=== PATIENT | male | born 1965 | race Caucasian/White ===

== ENCOUNTER 2017-01-17 14:51 | Emergency (ER) | payer MEDICAID ==
[~2017-01-17] VITALS: Wt 60.0 kg
[~2017-01-17 14:51] MED LIST: ACET500C5 PO; GLIP-95 PO; HYDR-3011 PO; MTF1000T PO
[2017-01-17] MEDS ORDERED: CEPH-443 PO (16:02)
[2017-01-17] MEDS ORDERED: SULF1TAB31 PO (16:02)
--- NOTE | 2017-01-17 20:02 | ERD ---
ER Documentation Chief Complaint Date/Time DATE: 01/17/17 TIME: 19:54 Chief Complaint RIGHT KNEE SWELLING/PAIN HPI This is a 51-year-old male presenting to the emergency department with right leg abscess. Patient states he noticed redness and swelling distal to the right knee for the past 3 days. Patient has a bandage covering the lesion with small amount of bloody discharge. No purulent discharge. No fevers or chills. No knee swelling or limited range of motion. Patient ambulating normally. ROS All systems reviewed and are negative except as per history of present illness. Medications Home Meds Active Scripts Cephalexin* (Keflex*) 500 Mg Capsule, 500 MG PO QID for 5 Days, CAP Prov:IAN HOFFMAN NP 01/17/17 Sulfamethoxazole/Trimethoprim* (Bactrim Ds* Tablet) 1 Each Tablet, 1 TAB PO BID , #14 TAB Prov:IAN HOFFMAN NP 01/17/17 Hydroxyzine Hcl* (Hydroxyzine Hcl*) 25 Mg Tablet, 25 MG PO Q8H Y for ITCHING, # 30 TAB Prov:CRISTIANA PARRA NP 11/02/15 Acetaminophen* (Tylophen*) 500 Mg Capsule, 1 CAP PO Q6H Y for PAIN AND OR ELEVATED TEMP, #20 CAP Prov:CRISTIANA PARRA CHEMICAL MIXER 11/02/15 Reported Medications Glipizide* (Glipizide*) 10 Mg Tablet, 10 MG PO BID, TAB 04/05/14 Metformin* (Glucophage*) 1,000 Mg Tablet, 1000 MG PO BID, TAB 04/05/14 Allergies Allergies: Coded Allergies: aspirin (Verified Allergy, Unknown, 04/05/14) PMhx/Soc History of Surgery: Yes (cholecystectomy) Hx Miscellaneous Medical Probl: Yes (DM) Hx Alcohol Use: Yes (SOCIALLY ) Hx Substance Use: No Hx Tobacco Use: No Smoking Status: Never smoker Physical Exam Vitals Vital Signs Date Time Temp Pulse Resp B/P Pulse Ox O2 Delivery O2 Flow Rate FiO2 01/17/17 14:59 8.0 99 17 167/101 99 Physical Exam Const: No acute distress, alert Head: Atraumatic Eyes: Normal Conjunctiva ENT: Normal External Ears, Nose and Mouth. Neck: Full range of motion..~ No meningismus. Resp: Clear to auscultation bilaterally Cardio: Regular rate and rhythm, no murmurs Abd: Soft, non tender, non distended. Normal bowel sounds Skin: small 1cm x 1cm erythematous swelling to the anterior distal right knee. No fluctuance. No induration. No active bleeding or drainage. Back: No midline or flank tenderness Ext: No cyanosis, or edema. Full mobility to bilateral knees. No limited range of motion. Ambulates normally. Neur: Awake and alert Psych: Normal Mood and Affect Procedures/MDM MDM: This is a 51-year-old male presenting to emergency department with right leg lesion with swelling and pain x 3 days. Patient noticed a small amount of bloody drainage prior to coming to the ER. No active drainage or bleeding. Patient has a small lesion with surrounding erythema and swelling distal to the right knee anteriorly. No fevers or chills. Patient remains neurovascularly intact. Denies numbness or tingling. No loss of sensation. Full mobility to right knee. Denies knee pain. Pain is localized to a small lesion with surrounding erythema and swelling. Patient diagnosis is cellulitis versus abscess. There is no fluctuance on physical exam and therefore an incision and drainage would not be successful. Patient is appropriate for outpatient management and instructed to apply warm compresses for 20 minutes a day 2-3 times a day. Patient will also be given prescription for Bactrim and Keflex. Instructed patient return in 2 days for wound check. Return to ED for any high fever, chest pain, difficulty breathing , shortness breath, wheezing, vomiting, diarrhea, abdominal pain or any new or worsening symptoms. Patient verbalizes understanding. All questions answered at discharge. Serbian translation use during this encounter. Disclaimer: Inadvertent spelling and grammatical errors are likely due to EHR/ dictation software use and do not reflect on the overall quality of patient care. Also, please note that the electronic time recorded on this note does not necessarily reflect the actual time of the patient encounter. Departure Diagnosis: Primary Impression: Abscess Condition: Stable Patient Instructions: Abscess, Antiobiotic Treatment Only Ref[facility] Usted se haile hecho un examen mdico de control que le indica que no est en dell condicin que requiera tratamiento urgente en el Departamento de Emergencia. Un estudio ms profundo y el tratamiento de melendrez condicin pueden esperar sin ningn riesgo hasta que usted sea atendida/o en el consultorio de melendrez mdico o dell cl elvie. Es responsabilidad suya arreglar dell rafiq para el seguimiento del tyson. MANEJO DE CONDICIONES NO URGENTES EN EL FUTURO 1) Si usted tiene un mdico de atencin primaria: Usted debera llamar a melendrez mdico de atencin primaria antes de venir al departamento de emergencia. Despus de las horas de consultorio, melendrez doctor o melendrez asociado/a est disponible por telfono. El mdico o enfermero de mar en el servicio telefnico puede asesorarle por sarah medio para atender el problema, o tyson contrario se puede programar dell rafiq. 2) Si usted no tiene un mdico de atencin primaria: Llame al mdico o clnica de referencia que aparece abajo marissa las horas de consultorio para hacer dell rafiq para que le vean. CLINICAS: [facility] [phone] [facility] [phone] [facility]. [facility] [phone] [facility]. [facility] [phone] [facility]. [place] [phone] [facility]. [phone] [address] [facility]. [facility] () Usted se haile hecho un examen mdico de control que le indica que no est en dell condicin que requiera tratamiento urgente en el Departamento de Emergencia. Un estudio ms profundo y el tratamiento de melendrez condicin pueden esperar sin ningn riesgo hasta que usted sea atendida/o en el consultorio de melendrez mdico o dell cl elvie. Es responsabilidad suya arreglar dell rafiq para el seguimiento del tyson. MANEJO DE CONDICIONES NO URGENTES EN EL FUTURO 1) Si usted tiene un mdico de atencin primaria: Usted debera llamar a melendrez mdico de atencin primaria antes de venir al departamento de emergencia. Despus de las horas de consultorio, melendrez doctor o melendrez asociado/a est disponible por telfono. El mdico o enfermero de mar en el servicio telefnico puede asesorarle por sarah medio para atender el problema, o tyson contrario se puede programar dell rafiq. 2) Si usted no tiene un mdico de atencin primaria: Llame al mdico o condado institucions de referencia que aparece abajo marissa las horas de consultorio para hacer dell rafiq para que le vean. SI USTED NO PUEDE PAGAR PARA PRASHANT UN MEDICO puede ir a: [facility] [id number] [place] [address] [facility] [address] [place] [address] [facility] [address] [place] [address] [facility] [address] [place], [place] [id number] Additional Instructions: WOUND CHECK:CONSULTE A MELENDREZ MDICO EN 2 howe para prashant MELENDREZ HERIDA. Regresar a ED por fiebre destiney, dolor en el pecho, dificultad para respirar, respiracin entrecortada, sibilancias, vmitos, diarrea, dolor abdominal o cualquier sntoma nuevo o que empeora. IAN HOFFMAN NP Jan 17, 2017 20:01
== END 2017-01-17 16:23 | disposition home or self-care (01) ==
LOC: FTE 14:51
DX: L02.415 Cutaneous abscess of right lower limb (principal); E11.9 Type 2 diabetes mellitus without complications; Z79.84 Long term (current) use of oral hypoglycemic drugs
CPT/HCPCS: 99284

== ENCOUNTER 2017-03-02 00:56 | Emergency (ER) | payer MEDICAID ==
[~2017-03-02] VITALS: Ht 167.6 cm; Wt 59.5 kg
[~2017-03-02 00:56] MED LIST changes: +CEPH-443 PO; +SULF1TAB31 PO
[2017-03-02 00:59] VITALS: Ht 167.6 cm; Wt 59.5 kg
--- NOTE | 2017-03-02 01:39 | ERD ---
ER Documentation Chief Complaint Chief Complaint Vomiting and diarrhea HPI The patient is a 51-year-old male, presenting to the ER because of vomiting and diarrhea that began yesterday. His son is having the same symptoms, he denies fever, chills, neck pain, chest pain, complains of epigastric abdominal pain with diarrhea, denied dysuria, hematochezia, hematemesis. He does not smoke, drinks socially, denies illicit drug Past medical history: Diabetes mellitus Past surgical history cholecystectomy ROS All systems reviewed and are negative except as per history of present illness. Medications Home Meds Active Scripts Ondansetron (Ondansetron Odt) 4 Mg Tab.rapdis, 4 MG PO Q6H Y for NAUSEA AND/OR VOMITING, #10 TAB Prov:RADHAMES ONEAL MD 03/02/17 Loperamide Hcl* (Imodium*) 2 Mg Capsule, 2 MG PO .WITH EACH DIARRHEA Y for DIARRHEA, #20 CAP MAX 16 mg/day Prov:RADHAMES ONEAL MD 03/02/17 Acetaminophen* (Tylophen*) 500 Mg Capsule, 1 CAP PO Q6H Y for PAIN AND OR ELEVATED TEMP, #20 CAP Prov:CRISTIANA PARRA NP 11/02/15 Reported Medications Calcium Citrate* (Citracal*) 950 Mg Tab, 950 MG PO DAILY, TAB 03/02/17 Multivitamins* (Theragran*) 1 Tab Tab, 1 TAB PO DAILY, TAB 03/02/17 Glipizide* (Glipizide*) 10 Mg Tablet, 10 MG PO BID, TAB 04/05/14 Metformin* (Glucophage*) 1,000 Mg Tablet, 1000 MG PO BID, TAB 04/05/14 Discontinued Scripts Cephalexin* (Keflex*) 500 Mg Capsule, 500 MG PO QID for 5 Days, CAP Prov:IAN HOFFMAN NP 01/17/17 Sulfamethoxazole/Trimethoprim* (Bactrim Ds* Tablet) 1 Each Tablet, 1 TAB PO BID , #14 TAB Prov:IAN HOFFMAN NP 01/17/17 Hydroxyzine Hcl* (Hydroxyzine Hcl*) 25 Mg Tablet, 25 MG PO Q8H Y for ITCHING, # 30 TAB Prov:CRISTIANA PARRA NP 11/02/15 Allergies Allergies: Coded Allergies: aspirin (Verified Allergy, Unknown, 04/05/14) PMhx/Soc History of Surgery: Yes (cholecystectomy) Hx Miscellaneous Medical Probl: Yes (DM) Hx Alcohol Use: Yes (SOCIALLY ) Hx Substance Use: No Hx Tobacco Use: No Physical Exam Vitals Vital Signs Date Time Temp Pulse Resp B/P Pulse Ox O2 Delivery O2 Flow Rate FiO2 03/02/17 00:59 98.3 88 20 142/96 98 Physical Exam Const: No acute distress. Head: Atraumatic. Eyes: Normal Conjunctiva. ENT: Normal External Ears, Nose and Mouth. Neck: Full range of motion. No meningismus. Resp: Clear to auscultation bilaterally. Cardio: Regular rate and rhythm. Abd: Soft, non distended, normal bowel sounds, non tender. Skin: No petechiae or rashes. Back: No midline or flank tenderness. Ext: No cyanosis, or edema. Neur: Awake and alert. No focal deficit Psych: Normal Mood and Affect. Result Diagram: 03/02/1722603/02/17226 Results 24 hrs Laboratory Tests Test 03/02/17 02:20 03/02/17 02:27 Bedside Glucose 318mg/dL White Blood Count 11.410^3/ul Red Blood Count 4.4910^6/ul Hemoglobin 14.8g/dl Hematocrit 41.1% Mean Corpuscular Volume 91.5fl Mean Corpuscular Hemoglobin 33.0pg Mean Corpuscular Hemoglobin Concent 36.0g/dl Red Cell Distribution Width 11.7% Platelet Count 03479^3/UL Mean Platelet Volume 11.7fl Neutrophils % 90.2% Lymphocytes % 4.9% Monocytes % 3.4% Eosinophils % 0.8% Basophils % 0.3% Nucleated Red Blood Cells % 0.0/100WBC Neutrophils # 10.310^3/ul Lymphocytes # 0.610^3/ul Monocytes # 0.410^3/ul Eosinophils # 0.110^3/ul Basophils # 0.010^3/ul Nucleated Red Blood Cells # 0.010^3/ul Sodium Level 140mmol/L Potassium Level 3.0mmol/L Chloride Level 97mmol/L Carbon Dioxide Level 30mmol/L Anion Gap 16 Blood Urea Nitrogen 16mg/dl Creatinine 0.79mg/dl Glucose Level 338mg/dl Calcium Level 8.9mg/dl Total Bilirubin 1.7mg/dl Direct Bilirubin 0.00mg/dl Indirect Bilirubin 1.7mg/dl Aspartate Amino Transf (AST/SGOT) 25IU/L Alanine Aminotransferase (ALT/SGPT) 44IU/L Alkaline Phosphatase 134IU/L Total Protein 7.5g/dl Albumin 4.6g/dl Globulin 2.90g/dl Albumin/Globulin Ratio 1.58 Lipase 45U/L Current Medications Medications (Trade) Dose Ordered Sig/La Route PRN Reason Start Time Stop Time Status Last Admin Dose Admin Loperamide HCl (Imodium Cap) 4 mg ONCE ONCE PO 03/02/17 02:00 03/02/17 02:01 DC 03/02/17 02:29 Ondansetron HCl 4 mg 4 mg ONCE STAT IV 03/02/17 01:56 03/02/17 01:58 DC 03/02/17 02:29 Sodium Chloride (NS) 1,000 ml @ 1,000 mls/hr Q1H ONCE IV 03/02/17 02:00 03/02/17 02:59 DC 03/02/17 02:29 Potassium Chloride (Klor-Con 20) 40 meq ONCE STAT PO 03/02/17 03:42 03/02/17 03:43 DC Procedures/MDM MEDICAL MAKING DECISION: The patient is a 51-year-old male, presenting to the ER because of vomiting and diarrhea, he was treated with Imodium 4 mg p.o. for diarrhea and Zofran ODT for nausea and potassium chloride 60 mcg p.o. for acute hypokalemia with good response. He does not have any abdominal pain, elevated total bilirubin is most likely due to vomiting. I do not suspect choledocholithiasis, cholangitis. The differential diagnoses considered include but are not limited to cholelithiasis, cholecystitis, cystitis, pancreatitis, hepatitis, gastritis, peptic ulcer disease, gastric ulcer, appendicitis, diverticulitis, cholangitis, choledocholithiasis, partial small bowel obstruction. Departure Diagnosis: Primary Impression: Vomiting and diarrhea Additional Impression: Hypokalemia Condition: Good Comments He was discharged with Imodium and Zofran ODT The patient's blood pressure was elevated (>120/80) but appears stable without evidence of hypertension emergency or urgency. The patient was counseled about the risks of hypertension and urged to pursue outpatient monitoring and therapy within a week with their primary care physician. I discussed the findings with the patient. I advised the patient to follow-up with the primary physician in about 1-2 days, sooner if needed and return if any concern. Disclaimer: Inadvertent spelling and grammatical errors are likely due to EHR/ dictation software use and do not reflect on the overall quality of patient care. Also, please note that the electronic time recorded on this note does not necessarily reflect the actual time of the patient encounter. RADHAMES ONEAL MD Mar 02, 2017 01:39
[2017-03-02] MEDS ORDERED: ONDANSETRON 4 MG INJ IV STA (01:56)
[2017-03-02] MEDS ORDERED: LOPERAMIDE 2 MG CAP PO ONE (02:00)
[2017-03-02] MEDS ORDERED: SOD CHLORIDE 0.9% 1,000 ML IV ONE (02:00)
[2017-03-02 02:41] LABS: ABNORMAL IP MESSAGE 1; BASOPHILS % 0.3 % (0.0-2.0); EOSINOPHILS # 0.1 10^3/ul (0.0-0.5); EOSINOPHILS % 0.8 % (0.0-7.0); HEMATOCRIT 41.1 % (42.0-52.0); HEMOGLOBIN 14.8 g/dl (14.0-18.0); LYMPHOCYTES # 0.6 10^3/ul (0.8-2.9); LYMPHOCYTES % 4.9 % (15.0-51.0); MEAN CORPUSCULAR VOLUME 91.5 fl (82.0-101.0); MEAN PLATELET VOLUME 11.7 fl (7.4-10.4); MONOCYTE # 0.4 10^3/ul (0.3-0.9); MONOCYTES % 3.4 % (0.0-11.0); NEUTROPHIL # 10.3 10^3/ul (1.6-7.5); NEUTROPHILS % 90.2 % (39.0-77.0); PLATELET COUNT 207 10^3/UL (140-415); POSITIVE DIFF @See below; RED BLOOD COUNT 4.49 10^6/ul (4.70-6.10); RED CELL DISTRIBUTION WIDTH 11.7 % (11.5-14.5); WHITE BLOOD COUNT 11.4 10^3/ul (4.8-10.8)
[2017-03-02 03:11] LABS: ALBUMIN 4.6 g/dl (3.3-4.9); ALBUMIN/GLOBULIN RATIO 1.58; BILIRUBIN,INDIRECT 1.7 mg/dl (0-1.1); BILIRUBIN,TOTAL 1.7 mg/dl (0.2-1.3); CALCIUM 8.9 mg/dl (8.4-10.2); CREATININE 0.79 mg/dl (0.61-1.24); TOTAL PROTEIN 7.5 g/dl (6.1-8.1)
[2017-03-02] MEDS ORDERED: MULTI PO (03:17)
[2017-03-02] MEDS ORDERED: CITRACAL PO (03:17)
[2017-03-02] MEDS ORDERED: POTASSIUM CHLORIDE (SR) 20 MEQ TAB PO STA (03:42)
[2017-03-02] MEDS ORDERED: LOPE2CAP PO (03:48)
[2017-03-02] MEDS ORDERED: ONDA4TAB14 PO (03:48)
[2017-03-02 04:06] VITALS: BP 122/89; PULSE 68; RESP 20; TEMP 98.3
[2017-03-02] MEDS ORDERED: POTASSIUM CHLORIDE (SR) 20 MEQ TAB PO ONE (04:09)
== END 2017-03-02 04:13 | disposition home or self-care (01) ==
LOC: E/R 00:56
DX: E87.6 Hypokalemia (principal); E11.9 Type 2 diabetes mellitus without complications; Z79.84 Long term (current) use of oral hypoglycemic drugs
CPT/HCPCS: 36415; 80053; 82962; 83690; 85025; 96374; J2405; J7030; Z7502; Z7610

== ENCOUNTER 2019-01-09 17:34 | Inpatient (IN) | payer MEDICAID ==
[~2019-01-09] VITALS: Ht 160 cm; Wt 59.0 kg
[~2019-01-09 17:34] MED LIST changes: +ATOR10TA65 PO; -CEPH-443 PO; +CITRACAL PO; +GABA100C14 PO; -GLIP-95 PO; +GLIP10TA14 PO; -HYDR-3011 PO; +INSU100I33 SC; +LISI-313 PO; +LOPE2CAP PO; +METF100010 PO; +MULTI PO; +NATE60TA PO; +NPH,100V SC; +OMEG100024 PO; +ONDA4TAB14 PO; +PANT40TA4 PO; +PRED20TA PO; -SULF1TAB31 PO; +THIA100T56 PO; +VALA500T PO
[2019-01-09] MEDS ORDERED: SOD CHLORIDE 0.9% 1,000 ML IV STA (17:49)
[2019-01-09] MEDS ORDERED: IOHEXOL 100 ML ONE (17:55)
[2019-01-09] MEDS ORDERED: SOD CHLORIDE 0.9% 100 ML ONE (17:55)
[2019-01-09] MEDS ORDERED: INSULIN LISPRO 100 UNIT/ML VIAL SC ONE (19:00)
[2019-01-09] MEDS ORDERED: ACCU-CHEK XX ONE (19:00)
[2019-01-09] MEDS ORDERED: ONDANSETRON 4 MG INJ IV PRN ×2 (19:30)
[2019-01-09] MEDS ORDERED: NACL 0.9% 3 ML SYG IV SCH (19:30)
[2019-01-09] MEDS: SOD CHLORIDE 0.9% 1,000 ML IV SCH (19:30)
[2019-01-09] MEDS ORDERED: DOCUSATE SODIUM 100 MG CAP PO PRN (19:30)
[2019-01-09] MEDS ORDERED: ACETAMINOPHEN 325 MG TAB PO PRN (19:30)
[2019-01-09] MEDS ORDERED: MAGNESIUM HYDROXIDE 30ML CUP PO PRN (19:30)
[2019-01-09] MEDS ORDERED: GLUCOSE GEL 15 GRAM TUBE BUCCAL PRN (20:00)
[2019-01-09] MEDS ORDERED: GLUCOSE GEL 15 GRAM TUBE PO PRN ×2 (20:00)
[2019-01-09] MEDS ORDERED: GLUCAGON 1 MG INJ IM PRN (20:00)
[2019-01-09] MEDS ORDERED: LORAZEPAM 1 MG TAB PO ONE (20:00)
[2019-01-09] MEDS ORDERED: LABETALOL HCL 20MG INJ IV PRN (20:00)
[2019-01-09] MEDS ORDERED: DEXTROSE 50% 50 ML SYRINGE IV PRN ×2 (20:00)
[2019-01-09] MEDS: hydrALAzine 20 MG INJ IV PRN (20:17)
[2019-01-09 21:00] VITALS: BP 162/84; PULSE 96; RESP 16
[2019-01-09] MEDS: INSULIN ASPART [NOVOLOG] 3 ML PEN SC SCH (21:00)
[2019-01-09] MEDS ORDERED: ATORVASTATIN 80 MG TAB PO SCH (21:00)
[2019-01-09 21:25] VITALS: Ht 160 cm; Wt 59.0 kg
[2019-01-09] MEDS: INSULIN GLARGINE [LANTus] (100 UNITS/ML) SYG SC SCH (21:51)
[2019-01-09] MEDS: ACETAMINOPHEN 325 MG TAB PO PRN (21:59)
[2019-01-09] MEDS ORDERED: LORAZEPAM 0.5 MG TAB PO PRN (22:30)
[2019-01-10] VITALS (9 sets, daily range): BP systolic 140–230; BP diastolic 84–103; PULSE 70–91; RESP 16–20
[2019-01-10] MEDS: ACETAMINOPHEN 325 MG TAB PO PRN ×3 (00:22→17:21)
[2019-01-10] MEDS: hydrALAzine 20 MG INJ IV PRN (00:29)
[2019-01-10] MEDS: INSULIN ASPART [NOVOLOG] 3 ML PEN SC SCH ×4 (01:04→18:00)
[2019-01-10] MEDS: MULTIVITAMINS 10 ML, THIAMINE 100 MG, FOLIC ACID 1 MG in SOD CHLORIDE 0.9% 1,000 ML IVPB SCH ×3 (01:29→11:04)
[2019-01-10] MEDS: SOD CHLORIDE 0.9% 1,000 ML IV SCH ×3 (05:30→19:15)
[2019-01-10] MEDS ORDERED: PANTOPRAZOLE (EC) 40 MG TAB PO SCH (06:00)
[2019-01-10] MEDS: CLOPIDOGREL 75 MG TAB PO SCH ×2 (08:24→11:04)
[2019-01-10] MEDS ORDERED: POTASSIUM CHLORIDE (SR) 20 MEQ TAB PO STA (10:32)
[2019-01-10] MEDS ORDERED: INSULIN ASPART [NOVOLOG] 3 ML PEN SC SCH (11:20)
[2019-01-10] MEDS: Insulin NOVOLOG SS MODERATE Algorithm (SS with meals and bedtime) SC SCH ×3 (11:25→21:00)
[2019-01-10] MEDS: LISINOPRIL 5 MG TAB PO SCH (14:28)
[2019-01-10] MEDS: predniSONE 20 MG TAB PO SCH (14:28)
[2019-01-10] MEDS: valACYclovir 500 MG TAB PO SCH ×2 (14:28→20:56)
[2019-01-10] MEDS ORDERED: hydrALAzine 20 MG INJ IV PRN (14:30)
[2019-01-10] MEDS: PANTOPRAZOLE (EC) 40 MG TAB PO SCH (17:21)
[2019-01-10] MEDS: GABAPENTIN 100 MG CAP PO SCH ×2 (17:22→20:56)
[2019-01-10] MEDS: ATORVASTATIN 10 MG TAB PO SCH (20:56)
[2019-01-10] MEDS: FISH OIL 1,000 MG CAP PO SCH (20:56)
[2019-01-10] MEDS ORDERED: ATORVASTATIN 40 MG TAB PO SCH (21:00)
[2019-01-10] MEDS: INSULIN GLARGINE [LANTus] (100 UNITS/ML) SYG SC SCH (22:01)
[2019-01-11] MEDS: SOD CHLORIDE 0.9% 1,000 ML IV SCH ×3 (01:30→21:30)
[2019-01-11 04:16] VITALS: BP 142/85; PULSE 74; RESP 18
[2019-01-11] MEDS: PANTOPRAZOLE (EC) 40 MG TAB PO SCH ×2 (05:31→17:40)
[2019-01-11 07:08] VITALS: BP 159/72; PULSE 71; RESP 20
[2019-01-11] MEDS ORDERED: NPH, HUMAN INSULIN ISOPHANE 3ML VIAL SC SCH (08:00)
[2019-01-11] MEDS: valACYclovir 500 MG TAB PO SCH ×2 (08:16→20:23)
[2019-01-11] MEDS: FISH OIL 1,000 MG CAP PO SCH ×2 (08:16→20:22)
[2019-01-11] MEDS: GABAPENTIN 100 MG CAP PO SCH ×3 (08:16→20:22)
[2019-01-11] MEDS: predniSONE 20 MG TAB PO SCH (08:16)
[2019-01-11] MEDS: LISINOPRIL 5 MG TAB PO SCH (08:17)
[2019-01-11] MEDS: Insulin NOVOLOG SS MODERATE Algorithm (SS with meals and bedtime) SC SCH ×4 (08:22→21:56)
[2019-01-11] MEDS: INSULIN ASPART [NOVOLOG] 3 ML PEN SC SCH (08:22)
[2019-01-11] MEDS: MULTIVITAMINS 10 ML, THIAMINE 100 MG, FOLIC ACID 1 MG in SOD CHLORIDE 0.9% 1,000 ML IVPB SCH (08:25)
[2019-01-11 11:03] VITALS: BP 125/77; PULSE 73; RESP 20
[2019-01-11] MEDS: ACCU-CHEK XX SCH ×7 (11:43→21:50)
[2019-01-11] MEDS: THIAMINE 100 MG TAB PO SCH (13:00)
[2019-01-11] MEDS: NATEGLINIDE 60 MG TAB PO SCH ×2 (13:47→17:40)
[2019-01-11 15:17] VITALS: BP 126/83; PULSE 70; RESP 20
[2019-01-11] MEDS: metFORMIN 500 MG TAB PO SCH (17:41)
[2019-01-11 19:25] VITALS: BP 144/90; PULSE 80; RESP 18
[2019-01-11] MEDS ORDERED: INSULIN ASPART [NOVOLOG] 3 ML PEN SC ONE (19:30)
[2019-01-11] MEDS ORDERED: ACCU-CHEK XX ONE (19:30)
[2019-01-11] MEDS: ATORVASTATIN 10 MG TAB PO SCH (20:22)
[2019-01-11] MEDS: INSULIN GLARGINE [LANTus] (100 UNITS/ML) SYG SC SCH (21:57)
[2019-01-11 23:52] VITALS: BP 142/84; PULSE 74; RESP 18
[2019-01-12] MEDS: SOD CHLORIDE 0.9% 1,000 ML IV SCH ×2 (02:34→17:45)
[2019-01-12 05:06] VITALS: BP 124/81; PULSE 72; RESP 16
[2019-01-12] MEDS: PANTOPRAZOLE (EC) 40 MG TAB PO SCH ×2 (06:16→17:44)
[2019-01-12 07:27] VITALS: BP 139/87; PULSE 84; RESP 17
[2019-01-12] MEDS: ACCU-CHEK XX SCH ×10 (07:57→20:36)
[2019-01-12] MEDS: predniSONE 20 MG TAB PO SCH (08:05)
[2019-01-12] MEDS: valACYclovir 500 MG TAB PO SCH ×3 (08:05→22:33)
[2019-01-12] MEDS: FISH OIL 1,000 MG CAP PO SCH ×2 (08:06→20:27)
[2019-01-12] MEDS: LISINOPRIL 5 MG TAB PO SCH (08:06)
[2019-01-12] MEDS: GABAPENTIN 100 MG CAP PO SCH ×3 (08:06→20:27)
[2019-01-12] MEDS: THIAMINE 100 MG TAB PO SCH (08:06)
[2019-01-12] MEDS: NATEGLINIDE 60 MG TAB PO SCH ×3 (08:06→17:45)
[2019-01-12] MEDS: metFORMIN 500 MG TAB PO SCH ×2 (08:07→17:45)
[2019-01-12] MEDS: NPH, HUMAN INSULIN ISOPHANE 3ML VIAL SC SCH (08:14)
[2019-01-12] MEDS: Insulin NOVOLOG SS MODERATE Algorithm (SS with meals and bedtime) SC SCH ×4 (08:15→20:35)
[2019-01-12] MEDS: MULTIVITAMINS 10 ML, THIAMINE 100 MG, FOLIC ACID 1 MG in SOD CHLORIDE 0.9% 1,000 ML IVPB SCH (11:27)
[2019-01-12 11:29] VITALS: BP 140/80; PULSE 82; RESP 16
[2019-01-12 15:31] VITALS: BP 149/83; PULSE 74; RESP 16
[2019-01-12] MEDS: ATORVASTATIN 10 MG TAB PO SCH (20:27)
[2019-01-12] MEDS: INSULIN GLARGINE [LANTus] (100 UNITS/ML) SYG SC SCH (20:35)
[2019-01-12 21:23] VITALS: BP 146/85; PULSE 65; RESP 18
[2019-01-13 02:00] VITALS: BP 148/84; PULSE 67; RESP 18
[2019-01-13] MEDS: valACYclovir 500 MG TAB PO SCH ×3 (06:15→21:33)
[2019-01-13] MEDS: PANTOPRAZOLE (EC) 40 MG TAB PO SCH ×2 (06:15→17:34)
[2019-01-13] MEDS: ACCU-CHEK XX SCH ×10 (07:00→21:41)
[2019-01-13 07:37] VITALS: BP 145/82; PULSE 83; RESP 20
[2019-01-13] MEDS: GABAPENTIN 100 MG CAP PO SCH ×3 (08:16→21:33)
[2019-01-13] MEDS: FISH OIL 1,000 MG CAP PO SCH ×2 (08:17→21:33)
[2019-01-13] MEDS: NATEGLINIDE 60 MG TAB PO SCH ×3 (08:17→17:34)
[2019-01-13] MEDS: LISINOPRIL 5 MG TAB PO SCH (08:18)
[2019-01-13] MEDS: metFORMIN 500 MG TAB PO SCH ×2 (08:22→17:34)
[2019-01-13] MEDS: Insulin NOVOLOG SS MODERATE Algorithm (SS with meals and bedtime) SC SCH ×4 (08:23→21:39)
[2019-01-13] MEDS: THIAMINE 100 MG TAB PO SCH (09:00)
[2019-01-13] MEDS: predniSONE 20 MG TAB PO SCH (09:46)
[2019-01-13] MEDS: NPH, HUMAN INSULIN ISOPHANE 3ML VIAL SC SCH (09:52)
[2019-01-13 13:59] VITALS: BP 157/85; PULSE 69; RESP 18
[2019-01-13 19:54] VITALS: BP 150/85; PULSE 70; RESP 18
[2019-01-13] MEDS: ATORVASTATIN 10 MG TAB PO SCH (21:33)
[2019-01-13] MEDS: INSULIN GLARGINE [LANTus] (100 UNITS/ML) SYG SC SCH (21:39)
[2019-01-14 01:18] VITALS: BP 154/89; PULSE 68; RESP 17
[2019-01-14] MEDS: valACYclovir 500 MG TAB PO SCH (06:31)
[2019-01-14] MEDS: PANTOPRAZOLE (EC) 40 MG TAB PO SCH (06:31)
[2019-01-14] MEDS: ACCU-CHEK XX SCH ×6 (07:00→14:00)
[2019-01-14 07:30] VITALS: BP 157/87; PULSE 65; RESP 18
[2019-01-14] MEDS: Insulin NOVOLOG SS MODERATE Algorithm (SS with meals and bedtime) SC SCH ×2 (07:50→11:55)
[2019-01-14] MEDS: FISH OIL 1,000 MG CAP PO SCH (08:21)
[2019-01-14] MEDS: NATEGLINIDE 60 MG TAB PO SCH ×2 (08:21→12:08)
[2019-01-14] MEDS: predniSONE 20 MG TAB PO SCH (08:22)
[2019-01-14] MEDS: GABAPENTIN 100 MG CAP PO SCH ×2 (08:22→12:08)
[2019-01-14] MEDS: THIAMINE 100 MG TAB PO SCH (08:22)
[2019-01-14] MEDS: LISINOPRIL 5 MG TAB PO SCH (08:22)
[2019-01-14] MEDS: NPH, HUMAN INSULIN ISOPHANE 3ML VIAL SC SCH (08:28)
[2019-01-14] MEDS: metFORMIN 500 MG TAB PO SCH (08:31)
== END 2019-01-14 16:15 | disposition home or self-care (01) | DRG 73 ==
LOC: E/R 17:34 → TEL 19:04 → 2NE 01-12 20:33
PROVIDERS: ADMIT Internal Medicine; ATTEND Internal Medicine
DX: G51.0 Bell's palsy (principal); G82.50 Quadriplegia, unspecified; M48.02 Spinal stenosis, cervical region; E11.40 Type 2 diabetes mellitus with diabetic neuropathy, unspecified; F10.920 Alcohol use, unspecified with intoxication, uncomplicated; B00.9 Herpesviral infection, unspecified; E11.65 Type 2 diabetes mellitus with hyperglycemia; E11.69 Type 2 diabetes mellitus with other specified complication; E78.5 Hyperlipidemia, unspecified; I10 Essential (primary) hypertension; Y90.6 Blood alcohol level of 120-199 mg/100 ml; Z79.4 Long term (current) use of insulin
CPT/HCPCS: 36415; 70450; 70496; 70498; 70544; 70551; 71045; 72125; 80048; 80061; 80307; 81003; 82550; 82553; 82962; 83036; 83735; 84443; 84484; 85025; 85610; 85651; 85730; 86592; 86692; 86703; 86803; 87340; 92610; 93005; 93306; 97162; 97165; 97530; J0360; J1815; J3411; J7030; J7512; Q9967